=== PATIENT | female | born 1970 | race Caucasian/White ===

== ENCOUNTER 2022-08-12 22:07 | Observation (INO) | payer BC ==
[~2022-08-12] VITALS: Ht 154.9 cm; Wt 57.6 kg
[2022-08-12] MEDS ORDERED: SODIUM CHLORIDE 0.9% 1000ML 1,000 ML IV ONE (22:45)
[2022-08-12] MEDS ORDERED: SODIUM CHLORIDE 0.9% 1000ML 1,000 ML ONE (23:05)
[2022-08-13] VITALS (15 sets, daily range): BP systolic 102–132; BP diastolic 49–87; PULSE 60–79; RESP 17–20; TEMP 98.1–98.3; O2SAT 98–100
[2022-08-13] MEDS ORDERED: TETANUS/DIPHTHERIA TOX ADULT 0.5 ML SYR IM ONE (01:00)
[2022-08-13] MEDS ORDERED: ONDANSETRON HCL INJ 2MG/ML 2ML 2 MG/ML VIAL IV PRN (01:00)
[2022-08-13] MEDS ORDERED: TETANUS/DIPHTHERIA TOX ADULT 0.5 ML SYR ONE (01:05)
[2022-08-13] MEDS: SODIUM CHLORIDE 0.9% 1000ML 1,000 ML IV SCH ×3 (03:06→16:20)
[2022-08-13] MEDS ORDERED: TRAZODONE HCL50 MG PO (04:08)
[2022-08-13] MEDS ORDERED: ROSUVASTATIN CA10 MG PO (04:08)
[2022-08-13] MEDS ORDERED: LOSARTAN-HCTZ1 EAC1 PO (04:08)
[2022-08-13] MEDS ORDERED: NALTREXONE HCL50 MG PO (04:08)
[2022-08-13] MEDS ORDERED: SERTRALINE HCL100 MG PO (04:08)
[2022-08-13] MEDS ORDERED: CARVEDILOL12.5 MG PO (04:08)
[2022-08-13] MEDS ORDERED: LEVOTHYROXINE137 MCG PO (04:08)
[2022-08-13 09:34] LABS: CREATINE KINASE 83 IU/L (29-168)
[2022-08-13 09:55] LABS: ALBUMIN 3.8 g/dL (3.5-5.0); ALBUMIN/GLOBULIN RATIO 1.7 (0.8-2.0); ANION GAP 13.9 mmol/L (8-16); CALCIUM 8.9 mg/dL (8.4-10.2); CREATININE, SERUM 0.8 mg/dL (0.57-1.11); POTASSIUM 3.9 mmol/L (3.5-5.1)
[2022-08-13 10:35] LABS: BASOPHILS % 0.5 % (0.0-1.0); EOSINOPHILS # (AUTO) 0.1 (0.0-0.4); EOSINOPHILS % 1.1 % (0.0-6.0); HEMATOCRIT 33.8 % (34.2-44.1); HEMOGLOBIN 11.4 g/dL (12.0-16.0); LYMPHOCYTES # (AUTO) 1.3 (1.0-3.2); LYMPHOCYTES % 20.4 % (18.0-39.1); MEAN CORPUSCULAR HEMOGLOBIN 32.1 pg (28-32); MEAN CORPUSCULAR HGB CONC 33.7 g/dL (31-35); MEAN CORPUSCULAR VOLUME 95.2 fL (81-99); MONOCYTES # (AUTO) 0.7 (0.2-0.8); MONOCYTES % 10.8 % (4.4-11.3); NEUTROPHILS # (AUTO) 4.1 (2.1-6.9); PLATELET COUNT 191 x10e3/uL (140-360); RED BLOOD COUNT 3.55 x10e6/uL (3.6-5.1); RED CELL DISTRIBUTION WIDTH 11.7 % (11.7-14.4)
[2022-08-13] MEDS: SERTRALINE HCL 100 MG TAB PO SCH (10:58)
[2022-08-14 00:47] VITALS: BP 106/63; PULSE 68; RESP 17; TEMP 97.7; O2SAT 100
[2022-08-14 00:48] VITALS: BP_SYST 104; BP_SYST 135; BP_DIAS 73; BP_DIAS 87; PULSE 68; PULSE 70
[2022-08-14] MEDS: SODIUM CHLORIDE 0.9% 1000ML 1,000 ML IV SCH ×2 (02:57→09:19)
[2022-08-14 04:00] VITALS: BP 130/82; PULSE 69; RESP 17; TEMP 97.8; O2SAT 99
[2022-08-14] MEDS ORDERED: IOPAMIDOL 370 MG/ML 100 ML INFUS..BTL INJ ONE (05:42)
[2022-08-14] MEDS ORDERED: LEVOTHYROXINE SODIUM 112 MCG TAB PO SCH (06:00)
[2022-08-14] MEDS ORDERED: LEVOTHYROXINE SODIUM 25 MCG TABLET PO SCH (06:00)
[2022-08-14 08:18] VITALS: BP 168/93; PULSE 64; RESP 22; TEMP 97.4; O2SAT 100
[2022-08-14] MEDS ORDERED: LOSARTAN POTASSIUM 100 MG TAB PO SCH (09:00)
[2022-08-14] MEDS: SERTRALINE HCL 100 MG TAB PO SCH (09:18)
[2022-08-14 09:29] VITALS: BP 168/93; PULSE 64; RESP 22; TEMP 97.4; O2SAT 100
[2022-08-14] MEDS ORDERED: PROCARDIA XL30 MG PO (11:46)
[2022-08-14 12:06] VITALS: BP 139/90; PULSE 72; RESP 22; TEMP 98.4; O2SAT 100
== END 2022-08-14 13:13 | disposition home or self-care (01) ==
LOC: FSED 22:12 → ERHOLD 08-13 01:04 → MED/SURG3 08-13 02:31
PROVIDERS: ADMIT Internal Medicine; ATTEND Internal Medicine
DX: R55 Syncope and collapse (principal); T44.7X5A Adverse effect of beta-adrenoreceptor antagonists, initial encounter; I10 Essential (primary) hypertension; E78.5 Hyperlipidemia, unspecified; E03.9 Hypothyroidism, unspecified; F10.10 Alcohol abuse, uncomplicated; F32.A Depression, unspecified; T14.8XXA Other injury of unspecified body region, initial encounter; W19.XXXA Unspecified fall, initial encounter; F17.290 Nicotine dependence, other tobacco product, uncomplicated; Z20.822 Contact with and (suspected) exposure to COVID-19; Z79.899 Other long term (current) drug therapy
CPT/HCPCS: 36415; 70450; 70498; 71045; 72125; 80053; 81003; 82550 ×2; 82553 ×2; 84443; 84484 ×2; 85025; 90714; 93005; 99284; G0378 ×2; J7030 ×3; Q9967; U0002